=== PATIENT | female | born 1950 | race Caucasian/White ===

== ENCOUNTER 2020-12-06 14:13 | Inpatient (IN) | payer OTHER ==
[~2020-12-06] VITALS: Ht 165.1 cm; Wt 158.0 kg
[2020-12-06 14:58] LABS: HEMOGLOBIN 13.9 gm/dl (12.3-15.3); RED BLOOD COUNT 4.66 M/UL (4.00-5.10); WHITE BLOOD COUNT 9.6 K/UL (4.5-11.0)
[2020-12-06 15:22] LABS: BUN/CREATININE RATIO 29 (0-10)
[2020-12-07] MEDS ORDERED: RELION NOV100 UNIT/1 SQ (05:26)
[2020-12-07] MEDS ORDERED: AMLODIPINE BESYL5 MG PO (05:27)
[2020-12-07] MEDS ORDERED: HYDRALAZINE HCL10 MG PO (05:27)
[2020-12-07] MEDS ORDERED: LISINOPRIL20 MG PO (05:27)
[2020-12-07] MEDS ORDERED: FLUOXETINE HCL40 MG PO (05:28)
[2020-12-07] MEDS ORDERED: METFORMIN HCL1000 MG PO (05:28)
[2020-12-07] MEDS ORDERED: CETIRIZINE HCL10 MG PO (05:29)
[2020-12-07] MEDS ORDERED: LOW DOSE ASPIRI81 MG PO (05:30)
[2020-12-07] MEDS ORDERED: TYLENOL325 M1 PO (05:31)
[2020-12-07 07:10] LABS: HEMOGLOBIN 13.1 gm/dl (12.3-15.3); RED BLOOD COUNT 4.46 M/UL (4.00-5.10)
[2020-12-07 08:06] LABS: BUN/CREATININE RATIO 27 (0-10)
[2020-12-08 07:09] LABS: HEMOGLOBIN 14.1 gm/dl (12.3-15.3); RED BLOOD COUNT 4.88 M/UL (4.00-5.10); WHITE BLOOD COUNT 7.1 K/UL (4.5-11.0)
[2020-12-08] MEDS ORDERED: LOPRESSOR 25 MG25 MG PO (11:01)
[2020-12-08] MEDS ORDERED: DEXAMETHASONE 44 MG PO (11:01)
[2020-12-08] MEDS ORDERED: FUROSEMIDE40 MG PO (11:01)
[2020-12-08] MEDS ORDERED: ATORVASTATIN CA10 MG PO (11:01)
[2020-12-09 08:22] LABS: RED BLOOD COUNT 4.5 M/UL (4.00-5.10); WHITE BLOOD COUNT 8.5 K/UL (4.5-11.0)
[2020-12-09 08:58] LABS: BUN/CREATININE RATIO 30 (0-10)
[2020-12-09] MEDS ORDERED: VENTOLIN HFA 66.7 GM INH (10:15)
--- NOTE | 2020-12-09 14:19 | NUR ---
OXYGEN SATURATION 85% ON ROOM AIR AT REST. HOME OXYGEN THERAPY NEEDED. WALTER MARADIAGA NOTIFIED.
== END 2020-12-09 19:41 | disposition home or self-care (01) | DRG 291 ==
LOC: ER1 14:13 → CDU 19:10 → M/S 12-07 04:56
PROVIDERS: Internal Medicine Cardiovascular Disease; Physician Assistant; ADMIT Internal Medicine
PROC: XW033E5 Introduction of Remdesivir Anti-infective into Peripheral Vein, Percutaneous Approach, New Technology Group 5 (ICD-10-PCS; principal; 2020-12-07)
PROC: 3E0333Z Introduction of Anti-inflammatory into Peripheral Vein, Percutaneous Approach (ICD-10-PCS; 2020-12-07)
PROC: 3E02340 Introduction of Influenza Vaccine into Muscle, Percutaneous Approach (ICD-10-PCS; 2020-12-07)
PROC: 8E0ZXY6 Isolation (ICD-10-PCS; 2020-12-07)
PROC: B24BZZZ Ultrasonography of Heart with Aorta (ICD-10-PCS; 2020-12-07)
DX: I11.0 Hypertensive heart disease with heart failure (principal); U07.1 COVID-19; J12.82 Pneumonia due to coronavirus disease 2019; J96.01 Acute respiratory failure with hypoxia; Z68.43 Body mass index [BMI] 50.0-59.9, adult; I50.33 Acute on chronic diastolic (congestive) heart failure; G47.33 Obstructive sleep apnea (adult) (pediatric); E83.42 Hypomagnesemia; E11.9 Type 2 diabetes mellitus without complications; E66.01 Morbid (severe) obesity due to excess calories; I27.20 Pulmonary hypertension, unspecified; I07.1 Rheumatic tricuspid insufficiency; F32.9 Major depressive disorder, single episode, unspecified; F41.9 Anxiety disorder, unspecified; E78.5 Hyperlipidemia, unspecified; J30.2 Other seasonal allergic rhinitis; Z79.4 Long term (current) use of insulin; Z23 Encounter for immunization; Z79.82 Long term (current) use of aspirin; Z83.3 Family history of diabetes mellitus; Z82.49 Family history of ischemic heart disease and other diseases of the circulatory system
CPT/HCPCS: ECHO; 36415; 71045; 80048; 80053; 80061; 81001; 82550; 82553; 82803; 82962; 83036; 83735; 83874; 83880; 84100; 84439; 84443; 84484; 85025; 85027; 86140; 93005; 93306; 93970; 94664; 94760; 99285; J1650; J1940; J3475; J7030; U0002

== ENCOUNTER → 2021-01-15 | Outpatient (CLI) | payer OTHER ==
[~2021-01-15] MED LIST: AMLODIPINE BESYL5 MG PO; ATORVASTATIN CA10 MG PO; CETIRIZINE HCL10 MG PO; DEXAMETHASONE 44 MG PO; FLUOXETINE HCL40 MG PO; FUROSEMIDE40 MG PO; HYDRALAZINE HCL10 MG PO; LISINOPRIL20 MG PO; LOPRESSOR 25 MG25 MG PO; LOW DOSE ASPIRI81 MG PO; METFORMIN HCL1000 MG PO; RELION NOV100 UNIT/1 SQ; TYLENOL325 M1 PO; VENTOLIN HFA 66.7 GM INH
== END ==
LOC: HEART 5 13:58
DX: U09.9 Post COVID-19 condition, unspecified (principal); R06.02 Shortness of breath
CPT/HCPCS: 94060; 94729

== ENCOUNTER 2021-03-24 13:12 | Emergency (ER) | payer OTHER ==
[2021-03-24 14:35] LABS: HEMOGLOBIN 13.6 gm/dl (12.3-15.3); RED BLOOD COUNT 4.26 M/UL (4.00-5.10)
[2021-03-24 15:18] LABS: BUN/CREATININE RATIO 22 (0-10)
[2021-03-24] MEDS ORDERED: BACTRIM DS TAB1 EACH PO (20:41)
[2021-03-24] MEDS ORDERED: CEPHALEXIN500 M1 PO (20:41)
== END 2021-03-24 20:53 | disposition home or self-care (01) ==
LOC: ER1 13:12
PROVIDERS: Physician Assistant
DX: L03.311 Cellulitis of abdominal wall (principal); N39.0 Urinary tract infection, site not specified; R60.0 Localized edema; E11.22 Type 2 diabetes mellitus with diabetic chronic kidney disease; I13.0 Hypertensive heart and chronic kidney disease with heart failure and stage 1 through stage 4 chronic kidney disease, or unspecified chronic kidney disease; N18.9 Chronic kidney disease, unspecified; I50.9 Heart failure, unspecified; E78.5 Hyperlipidemia, unspecified; E66.9 Obesity, unspecified; J45.909 Unspecified asthma, uncomplicated; Z86.16 Personal history of COVID-19; Z79.4 Long term (current) use of insulin
CPT/HCPCS: 71045; 80053; 81001; 82550; 82553; 83874; 83880; 84484; 85025; 87077; 87086; 87186; 93005; 99284; Q9967